=== PATIENT | male | born 1960 | race Caucasian/White ===

== ENCOUNTER 2021-03-02 14:36 | Emergency (ER) | payer BC, OTHER ==
[2021-03-02 14:55] LABS: Hemoglobin 14.4 g/dL (14.0-18.0); Mean Corpuscular Hemoglobin 33.3 pg (27.0-31.0); Mean Corpuscular Volume 98.1 fL (78.0-98.0); Mean Platelet Volume 6.1 fL (7.4-10.4); Platelet Count 177 thou/uL (130-400); RBC Distribution Width 11.6 % (11.5-14.5); Red Blood Cell (RBC) Count 4.33 mill/uL (4.70-6.10); White Blood Cell (WBC) Count 27.8 thou/uL (4.8-10.8)
[2021-03-02] MEDS ORDERED: Ondansetron PF 4 MG/2 ML Vial ONE (14:58)
[2021-03-02] MEDS ORDERED: Famotidine In NaCl 20 mg/50 ml Premix Bag ONE (14:58)
[2021-03-02] MEDS ORDERED: cefTRIAXone\\ROCEPHIN 2 GM VIAL ONE (15:08)
[2021-03-02] MEDS ORDERED: Acetaminophen 500 MG TAB ONE (15:08)
[2021-03-02 15:11] LABS: ALT (SGPT) 81 U/L (8-55); AST (SGOT) 55 U/L (5-34); Albumin 4.1 g/dL (3.5-5.0); Alkaline Phosphatase 93 U/L (40-110); Anion Gap 17 mmol/L (10-20); BUN (Urea Nitrogen) 19 mg/dL (8.4-25.7); Bilirubin, Total 2.6 mg/dL (0.2-1.2); Calc. Creatinine Clearance 0 mL/min (70-130); Calcium 9.5 mg/dL (7.8-10.44); Carbon Dioxide 23 mmol/L (22-29); Chloride 98 mmol/L (98-107); Globulin 3.7 g/dL (2.4-3.5); Glucose 212 mg/dL (70-105); Potassium 3.9 mmol/L (3.5-5.1); Protein, Total 7.8 g/dL (6.0-8.3); Sodium 134 mmol/L (136-145)
[2021-03-02 15:13] LABS: Band 16 % (5-11); Lymphocytes 1 % (21-51); MDiff Complete? YES; Monocytes 9 % (0-10); Neutrophil 74 % (42-75); Toxic Granulation SLIGHT; Vacuoles SLIGHT
[2021-03-02] MEDS ORDERED: Azithromycin 500 MG VIAL ONE (15:36)
[2021-03-02 15:38] LABS: Bilirubin Small (Negative); Blood, Urine Trace (Negative); Clarity Cloudy (Clear); Glucose, Urine (Dipstick) 250 mg/dL (Negative); Ketone, Urine Trace mg/dL (Negative); Leukocyte Trace (Negative); Nitrite Positive (Negative); Protein, Urine (Dipstick) 100 mg/dL (Neg-Trace); Specific Gravity, Urine 1.029 (1.002-1.036)
[2021-03-02 15:46] LABS: RBC/HPF 0-3 HPF (0-3); Squamous Epithelial 0-3 HPF (0-3)
[2021-03-02 15:47] LABS: Bacteria/HPF 2+ HPF (None Seen)
[2021-03-02 16:22] LABS: SARS-CoV-2 NAA Rapid Test Not Detected (NotDetected)
== END 2021-03-02 16:46 | disposition short-term general hospital (02) ==
LOC: BURERS 14:36
DX: A41.9 Sepsis, unspecified organism (principal); N10 Acute pyelonephritis; J18.9 Pneumonia, unspecified organism; E11.9 Type 2 diabetes mellitus without complications; I10 Essential (primary) hypertension; R11.2 Nausea with vomiting, unspecified; Z20.822 Contact with and (suspected) exposure to COVID-19
CPT/HCPCS: 0240U; 36415; 71045; 80053; 81003; 81015; 83605; 85025; 87040; 87086; 93005; 94760; 96365; 96367; 96375; J0456; J0696; J2405

== ENCOUNTER 2022-05-02 09:31 | Outpatient (CLI) | payer BC | END 2022-05-02 09:32 | disposition home or self-care (01) | LOC: BURRAD 09:31 | PROVIDERS: ATTEND Registered Nurse Community Health | DX: J18.9 Pneumonia, unspecified organism (principal) | CPT/HCPCS: 71046 ==

== ENCOUNTER → 2023-11-14 | Emergency (ER) | payer BC, OTHER ==
[~2023-11-14] MED LIST: Acetaminophen/Codeine 30-300mg Tablet ONE; Dextrose 50% Abboject 50 ML SYRINGE ONE; Ketorolac Tromethamine 60 MG/2 ML VIAL ONE
== END ==
LOC: BURERS 20:13
DX: S30.0XXA Contusion of lower back and pelvis, initial encounter (principal); S30.1XXA Contusion of abdominal wall, initial encounter; E11.9 Type 2 diabetes mellitus without complications; I10 Essential (primary) hypertension; V63.5XXA Driver of heavy transport vehicle injured in collision with car, pick-up truck or van in traffic accident, initial encounter
CPT/HCPCS: 72100; 96372; J1885